=== PATIENT | male | born 1965 ===

== ENCOUNTER 2016-09-10 07:31 | Emergency (ER) | payer BC ==
[2016-09-10] MEDS ORDERED: Tetan/Diph/Pertus SYR(Tdap)* 0.5 ML SYR(BOOSTRIX) use SYR IM ONE (08:48)
[2016-09-10 09:43] VITALS: BP 118/68
--- NOTE | 2016-09-10 16:05 | ED ---
Lilian Castro Thomas, scribed for Michelle Browne MD on 09/10/16 at 0754 . Bite Injury/Animal - HPI Summary HPI Summary: The pt is a 51 y/o M presenting to the ED s/p dog bite on his L posterior thigh this AM at 06:45. Medium sized dog was being walked by a dogger and the dog lunged at him. The pt rates the pain 4/10. The pain is alleviated and alleviated by nothing. 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 He denies any other symptoms at this time. He takes ASA daily. PMHx: previously healthy. PSHx: hernia repair. SHx: no alcohol, no illicit drugs, no smoking. FHx: liver CA. We received a call from the dog manager spring at 08:26, who reports that the dog is UTD with vaccinations. - History of Current Complaint Chief Complaint: EDAnimalBite Stated Complaint: DOG BITE Time Seen by Provider: 09/10/16 07:44 Hx Obtained From: Patient Onset of Injury: Happened hours ago - today at 06:45 Type of Bite: Animal - dog Hx of Bite: Unprovoked Has Animal Been Immunized?: Unknown - manager spring of dog claims yes but no proof; manager spring later calls, rabies vaccination is UTD, July 2016 Severity Initially: Moderate Severity Currently: Mild Pain Intensity: 4 Pain Scale Used: 0-10 Numeric Character: Puncture, Abrasion/Laceration Aggravating Factor(s): Nothing Alleviating Factor(s): Nothing Associated Signs And Symptoms: Positive: Negative Animal Available for Observation: Yes - Risk Factors Infection/Sepsis Risk Factors: Negative - Allergies/Home Medications Allergies/Adverse Reactions: Allergies Allergy/AdvReac Type Severity Reaction Status Date / Time No Known Allergies Allergy Verified 09/10/16 07:34 Home Medications: Home Medications Ibuprofen TAB* [Advil TAB*] 2 tab PO QAM 09/10/16 [History Confirmed 09/10/16] PMH/Surg Hx/FS Hx/Imm Hx Previously Healthy: Yes Cardiovascular History: Denies: Hx Myocardial Infarction Opthamlomology History: Denies: Hx Legally Blind - Surgical History Surgery Procedure, Year, and Place: hernia repair Infectious Disease History: No Infectious Disease History: Denies: Traveled Outside the [place] in Last 30 Days - Family History Known Family History: Positive: Other - POS: liver CA - Social History Occupation: Employed Full-time Lives: With Family Alcohol Use: None Substance Use Type: Reports: None Smoking Status (MU): Never Smoked Tobacco Review of Systems Negative: Fever Cardiovascular: Negative Respiratory: Negative Positive: Other - POS: dog bite to L posterior thigh, 4/10 pain Neurological: Negative Psychological: Normal All Other Systems Reviewed And Are Negative: Yes Physical Exam Triage Information Reviewed: Yes Vital Signs On Initial Exam: Initial Vitals Temp Pulse Resp BP Pulse Ox 97 F 58 14 126/75 98 09/10/16 07:34 09/10/16 07:34 09/10/16 07:34 09/10/16 07:34 09/10/16 07:34 Vital Signs Reviewed: Yes Appearance: Positive: Well-Appearing, Well-Nourished, Pain Distress Skin: Positive: Warm, Skin Color Reflects Adequate Perfusion, Other - Dog bite to his L posterior thigh, irregular lac 3cm diameter, 1mm deep, bleeding controlled Head/Face: Positive: Normal Head/Face Inspection Eyes: Positive: Conjunctiva Clear ENT: Positive: Normal ENT inspection Neck: Positive: Supple Respiratory/Lung Sounds: Positive: Clear to Auscultation, Breath Sounds Present , Other - No respiratory distress Cardiovascular: Positive: RRR, Pulses are Symmetrical in both Upper and Lower Extremities, Other - Brisk cap refill. Negative: Murmur Abdomen Description: Positive: Nontender, Soft Musculoskeletal: Positive: Strength/ROM Intact Neurological: Positive: Sensory/Motor Intact, Alert, Oriented to Person Place, Time, Normal Gait, Speech Normal. Negative: Focal Deficit @ Psychiatric: Positive: Normal Diagnostics - Vital Signs Vital Signs Temp Pulse Resp BP Pulse Ox 09/10/16 07:45 97.7 F 51 16 113/71 97 09/10/16 07:34 97 F 58 14 126/75 98 - Laboratory Lab Statement: Any lab studies that have been ordered have been reviewed, and results considered in the medical decision making process. Bite Injury Course/Dx - Course Course Of Treatment: We received a call from the dog manager spring at 08:26, who reports that the dog is UTD with vaccinations. Per Dr. Rosario's office, last tetanus was 2009, will update it to be within 5 years, with the current injury. Assessment/Plan: The pt is a 51 y/o M presenting to the ED s/p dog bite on his L posterior thigh this AM at 06:45. The pt rates the pain 4/10. The pain is alleviated and alleviated by nothing. 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 He denies any other symptoms at this time. He takes ASA daily. 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 PMHx: previously healthy. PSHx: hernia repair. SHx: no alcohol, no illicit drugs, no smoking. FHx: liver CA. We received a call from the dog manager spring at 08:26, who reports that the dog is UTD with vaccinations. The pts tetanus shot is not UTD. Patients medication reviewed this visit. In the ED course the pt was given Tdap. Pt was advised to apply bacitracin to the affected area as well as ice. It was recommended that he lessen his training in for the next few days. He was told that the health department will follow up with him. Patient is diagnosed with Dog bite to L posterior thigh and Tdap update. He was prescribed Augmentin. Patient will be discharged with follow up from his PCP. Pt is agreeable with this plan. - Diagnoses Provider Diagnosis: Dog bite to left posterior thigh, Tdap updated Discharge - Discharge Plan Condition: Stable Disposition: HOME Prescriptions: Amoxicillin/Clavulanate TAB* [Augmentin TAB 875*] 875 mg PO BID #20 tab Patient Education Materials: Diphtheria/Pertussis/Tetanus Vaccine (By injection ), Amoxicillin/Clavulanate Potassium (By mouth), Diphtheria/Acellular Pertussis/ Tetanus Vaccine (By injection), Animal Bite (ED) Referrals: Crispin Rosario MD [Primary Care Provider] - 3 Days Additional Instructions: Dr. Browne recommends application of Bacitracin antibiotic ointment or generic "triple antibiotic ointment". Keep the wound clean and dry. Keep it bandaged. Change the bandage twice a day. Ice it for the first 48 hrs four times a day, and then ice it after every run to prevent further bruising until it heals. Your tetanus status was updated with a Tdap vaccine today which is good for 10 years. This vaccine also protects against diphtheria and whooping cough ( pertussis). You will be taking Augmentin 875mg twice a day for 10 days to prevent infection from the dog bite. RETURN TO THE EMERGENCY DEPARTMENT FOR ANY NEW OR WORSENING SYMPTOMS The documentation as recorded by the scribLilian sanchez Thomas accurately reflects the service I personally performed and the decisions made by me, Michelle Browne MD.
== END 2016-09-10 09:41 | disposition home or self-care (01) ==
LOC: ED 07:31
DX: S71.152A Open bite, left thigh, initial encounter (principal); W54.0XXA Bitten by dog, initial encounter; Y93.89 Activity, other specified; Y92.9 Unspecified place or not applicable
CPT/HCPCS: 90471; 90715; 99283

== ENCOUNTER 2019-04-20 10:23 | Emergency (ER) | payer BC ==
--- NOTE | 2019-04-20 10:57 | UC ---
FLU HPI - HPI Summary HPI Summary: 54-year-old male presenting with fatigue, decreased appetite, chills, and feeling of shortness of breath for over a week. Patient states he traveled to [facility] on April 07, 2019 and came back after the weekend. Patient states there for days later he developed a cough. States that is nonproductive. Also notes some mild nasal congestion. Denies sore throat. Denies known fevers. Denies nausea and vomiting. States sometimes he feels short of breath and then feels okay and then other times it like he can't talk because he feels so short of breath. Denies wheezing. Patient states he was seen by his PCP 3 days ago and tested for flu which was negative. Patient also states that he was seen by his PCP before leaving for [place] and prescribed Zoloft and Xanax for recent diagnosis of anxiety and probable depression. Patient states he's never had either these before. States that for the last 2 weeks he has had extreme fatigue and "even the smallest tasks seem daunting." He states "it feels like the world is caving in." Patient states he is unsure how much of his symptoms are physical versus mental. States it feels like a severe case of the flu without having fevers. States before the last couple weeks he was an "avid runner and swimmer and now the thought of exercise seems impossible." Denies suicidal or homicidal ideations. Nonsmoker. Denies history of asthma or COPD. - History of Current Complaint Chief Complaint: UCRespiratory Stated Complaint: RESPIRATORY ISSUE Hx Obtained From: Patient Pain Intensity: 8 Pain Scale Used: 0-10 Numeric - Allergy/Home Medications Allergies/Adverse Reactions: Allergies Allergy/AdvReac Type Severity Reaction Status Date / Time No Known Allergies Allergy Verified 04/20/19 10:38 Home Medications: Home Medications Ibuprofen TAB* [Advil TAB*] 2 tab PO QAM 09/10/16 [History Confirmed 04/20/19] ALPRAZolam [Alprazolam] 2 tab PO DAILY PRN 04/20/19 [History Confirmed 04/20/19] Sertraline* [Zoloft*] 2 tab PO DAILY 04/20/19 [History Confirmed 04/20/19] Sildenafil (NF) [Viagra (NF)] 1 tab PO DAILY PRN 04/20/19 [History Confirmed 01/27] PMH/Surg Hx/FS Hx/Imm Hx Psychological History: Anxiety - recent dx - Surgical History Surgical History: Yes Surgery Procedure, Year, and Place: hernia repair - Family History Known Family History: Positive: Other - POS: liver CA - Social History Alcohol Use: Daily Substance Use Type: Marijuana Smoking Status (MU): Never Smoked Tobacco Review of Systems All Other Systems Reviewed And Are Negative: Yes Constitutional: Positive: Chills, Fatigue ENT: Positive: Sinus Congestion Respiratory: Positive: Shortness Of Breath, Cough Cardiovascular: Positive: Negative. Negative: Chest Pain Gastrointestinal: Positive: Negative Musculoskeletal: Positive: Negative Neurological/Mental Status: Positive: Headache Psychological: Positive: Anxious, Depressed Physical Exam - Summary Physical Exam Summary: Vital Signs Reviewed: Yes A+Ox3, no distress, well-appearing Eyes: Conjunctiva Clear ENT: Hearing grossly normal, TM x 2 clear, moist, uvula midline, no exudate, no erythema Neck: Positive: Supple, no lymphadenopathy Respiratory: Positive: No respiratory distress, No accessory muscle use + CTA throughout no w/r, patient taking shallow rapid breaths intermittently throughout visit Cardiovascular: RRR nl s1, s2 no m/r Musculoskeletal Exam: [place] x 4 without difficulty Neurological: Positive: Alert Psychological: Positive: age appropriate behavior, flat affect Skin: Positive: no rash, no ecchymosis Vital Signs: Vital Signs (72 hours) 04/20/19 11:00 Temperature 98.3 F Pulse Rate 62 Respiratory 16 Rate Blood Pressure 99/64 (mmHg) O2 Sat by Pulse 98 Oximetry Lab Results 04/20/19 Range/Units 11:53 Influenza A (Rapid) Negative (Negative) Influenza B (Rapid) Negative (Negative) Flu Course/Dx - Course Course Of Treatment: Negative rapid flu test. VS WNL and patient well-appearing. I took a throat swab and two nasopharyngeal swabs which were both sent for testing for covid 19. The health department informed TRACEY Dominguez that the patient should be quarantined at home. I informed the patient that he is to go home and felt quarantined including staying with his . I informed him that he would be notified with the results once they're done. Instructed him to follow up with his PCP once symptoms have fully resolved for further discussion of his anxiety and depression and chronic fatigue. Patient was understanding and agreed with the treatment plan. - Differential Dx/Diagnosis Differential Diagnosis/HQI/PQRI: Influenza, Upper Respiratory Infection Provider Diagnosis: Viral URI with cough, Anxiety and depression Discharge ED - Sign-Out/Discharge Documenting (check all that apply): Patient Departure All imaging exams completed and their final reports reviewed: No Studies - Discharge Plan Condition: Stable Disposition: HOME Patient Education Materials: Depression (ED), Viral Syndrome (ED), Anxiety (ED) Referrals: Crispin Rosario MD [Primary Care Provider] - 1 Week Additional Instructions: Your swabs have been sent for culture and you will be notified with results. It is recommended that you quarantine yourself alone in a room at home away from everyone else, including your , until you are contacted by the health department. Have food brought to you and placed outside of the door for you. Continue to get plenty of rest and increase your fluid intake. If you begin to feel anxious or short of breath, it may help to breathe into a paper bag. When she had been contacted by the health department in her symptoms resolve, it is recommended that you follow-up again with your primary care provider to further discuss your anxiety and depression and possibility of obtaining lab work. - Billing Disposition and Condition Condition: STABLE Disposition: Home
[2019-04-20 11:01] VITALS: BP 99/64
[2019-04-20 12:05] LABS: Influenza A Molecular Negative (Negative); Influenza B Molecular Negative (Negative)
== END 2019-04-20 12:55 | disposition home or self-care (01) ==
LOC: UCEAST 10:23
DX: F41.9 Anxiety disorder, unspecified (principal); F32.9 Major depressive disorder, single episode, unspecified; J06.9 Acute upper respiratory infection, unspecified; R05 Cough; Z79.899 Other long term (current) drug therapy
CPT/HCPCS: 99212; G0463